=== PATIENT | male | born 1950 | race Caucasian/White ===

== ENCOUNTER 2017-02-03 00:27 | Emergency (ER) | payer OTHER ==
[~2017-02-03] VITALS: Ht 182.9 cm; Wt 99.5 kg
[~2017-02-03 00:27] MED LIST: CRESTOR20 MG PO; HCTZ 25MG25 MG PO; JANUVIA25 MG PO; LISINOPRIL20 MG PO; NORCO 325 MG-7.1 TA1 PO; NORVASC 10MG10 MG PO; PROTONIX 40MG T40 MG PO; WELCHOL625 MG PO
[2017-02-03] MEDS ORDERED: MOBIC7.5 MG PO (00:39)
[2017-02-03] MEDS ORDERED: CYCLOBENZAPRINE10 M1 PO (01:07)
[2017-02-03] MEDS ORDERED: EC-NAPROSYN500 MG PO (01:09)
[2017-02-03 01:26] VITALS: BP 117/69
== END 2017-02-03 01:26 | disposition home or self-care (01) ==
LOC: ED 00:27
DX: M54.2 Cervicalgia (principal); M62.838 Other muscle spasm; I10 Essential (primary) hypertension; F17.290 Nicotine dependence, other tobacco product, uncomplicated; E78.5 Hyperlipidemia, unspecified
CPT/HCPCS: J1885